=== PATIENT | male | born 1945 | race Caucasian/White ===

== ENCOUNTER 2021-01-03 01:28 | Inpatient (IN) | payer MEDICARE ==
[2021-01-03] MEDS ORDERED: Propofol 1,000 MG/100 ML VIAL IV ONE (01:48)
[2021-01-03 01:51] LABS: #Lymphocytes 1.7 thou/uL (1.20-3.40); #Monocytes 0.5 thou/uL (0.11-0.59); %Basophils 0.5 % (0.0-1.0); %Eosinophils 0.2 % (0.0-10.0); %Lymphocytes 20.6 % (21.0-51.0); %Monocytes 6.3 % (0.0-10.0); %Neutrophils 72.5 % (42.0-75.0); Hemoglobin 14.6 g/dL (14.0-18.0); Mean Corpuscular HGB CONC 30.6 g/dL (32.0-36.0); Mean Corpuscular Hemoglobin 28.8 pg (27.0-31.0); Mean Corpuscular Volume 94.3 fL (78.0-98.0); Platelet Count 323 thou/uL (130-400); RBC Distribution Width 13.7 % (11.5-14.5); Red Blood Cell (RBC) Count 5.08 mill/uL (4.70-6.10); White Blood Cell (WBC) Count 8.3 thou/uL (4.8-10.8)
[2021-01-03] MEDS ORDERED: Vecuronium 10 MG VIAL ONE (02:03)
[2021-01-03] MEDS ORDERED: Water For Inject, Bacteriostat 30 ML ONE (02:05)
[2021-01-03 02:11] LABS: ALT (SGPT) 56 U/L (8-55); AST (SGOT) 68 U/L (5-34); Alkaline Phosphatase 155 U/L (40-110); Anion Gap 22 mmol/L (10-20); BUN (Urea Nitrogen) 16 mg/dL (8.4-25.7); Bilirubin, Total 0.7 mg/dL (0.2-1.2); Calc. Creatinine Clearance 0 mL/min (70-130); Calcium 9.1 mg/dL (7.8-10.44); Carbon Dioxide 23 mmol/L (23-31); Chloride 96 mmol/L (98-107); Globulin 3.7 g/dL (2.4-3.5); Glucose 191 mg/dL (83-110); Potassium 6.1 mmol/L (3.5-5.1); Protein, Total 7.7 g/dL (5.8-8.1); Sodium 135 mmol/L (136-145)
[2021-01-03] MEDS ORDERED: Sodium Bicarb 50 MEQ/50 ML Abboject 8.4% SYRINGE ONE ×2 (02:21)
[2021-01-03 02:22] LABS: Bilirubin Negative (Negative); Blood, Urine Negative (Negative); Clarity Clear (Clear); Glucose, Urine (Dipstick) Normal (Negative); Ketone, Urine Negative (Negative); Leukocyte Negative Leu/uL (Negative); Nitrite Negative (Negative); Protein, Urine (Dipstick) 20 mg/dL (Neg-Trace); Specific Gravity, Urine 1.021 (1.002-1.036); Urobilinogen Normal mg/dL (Less than 2); pH, Urine 5.5 (5.0-9.0)
[2021-01-03] MEDS ORDERED: Dextrose 50% Abboject 50 ML SYRINGE ONE (02:22)
[2021-01-03] MEDS ORDERED: Calcium Chloride 1 GM/10 ML Abboject SYRINGE ONE (02:22)
[2021-01-03] MEDS ORDERED: Insulin Regular 300 UNITS/3 ML VIAL ONE ×2 (02:22→17:55)
[2021-01-03 02:34] LABS: Actual Bicarbonate (HCO3a) 26.8 mEq/L (22-28); Analyzer IN Cardio ER; Base Excess (BEa) -1.9 mEq/L (-2.0 to +3.0); Calcium, Ionized (arterial) 1.12 mmol/L (1.12-1.30); Hemoglobin (Hb) 14.1 g/dL (14.0-18.0); Potassium - ABG Lab 5.02 mmol/L (3.70-5.30)
[2021-01-03 03:00] LABS: SARS-CoV-2 NAA Rapid Test Not Detected (NotDetected)
[2021-01-03] MEDS ORDERED: Furosemide 40 MG/4 ML VIAL ONE (03:22)
[2021-01-03] MEDS ORDERED: Ketamine 50 MG/ML (10ML VIAL) ONE (03:32)
[2021-01-03] MEDS ORDERED: Norepinephrine 8 MG/0.9% NS 0 ML ONE (03:45)
[2021-01-03] MEDS ORDERED: Norepinephrine 4 MG/4 ML VIAL ONE (03:59)
[2021-01-03] MEDS ORDERED: Norepinephrine 8 MG/0.9% NS 250 ML ONE ×2 (03:59→11:31)
[2021-01-03] MEDS ORDERED: Vancomycin 1 GM/200 ML BAG ONE (04:32)
[2021-01-03] MEDS ORDERED: Cefepime 2 GM VIAL ONE ×3 (04:32→20:46)
[2021-01-03 05:22] LABS: Lactic Acid 7.9 mmol/L (0.5-2.2)
[2021-01-03 05:23] LABS: Anion Gap 18 mmol/L (10-20); BUN (Urea Nitrogen) 18 mg/dL (8.4-25.7); Calc. Creatinine Clearance 0 mL/min (70-130); Calcium 10.3 mg/dL (7.8-10.44); Carbon Dioxide 27 mmol/L (23-31); Chloride 95 mmol/L (98-107); Glucose 140 mg/dL (83-110); Sodium 135 mmol/L (136-145)
[2021-01-03 05:32] LABS: Acetaminophen Less than 6.0 mcg/mL (10.0-30.0); Alcohol Less than 10 mg/dL (Less than 10); Salicylate Less than 8.0 mg/dL (15.0-30.0)
[2021-01-03 06:30] LABS: Troponin I 0.109 ng/mL (< 0.028)
[2021-01-03 07:26] LABS: Amphetamine Not Detected (NotDetected); Barbiturates Screen Not Detected (NotDetected); Benzodiazepine Screen Not Detected (NotDetected); Cocaine Metabolite Screen Not Detected (NotDetected); Methadone Not Detected (NotDetected); Methamphetamine Not Detected (NotDetected); Opiate Screen Not Detected (NotDetected); Oxycodone Screen Not Detected (NotDetected); Phencyclidine (PCP) Not Detected (NotDetected); THC/Cannabinoid Screen Not Detected (NotDetected); Tricyclic Screen Not Detected (NotDetected)
[2021-01-03 08:00] LABS: Hemoglobin A1c 6.5 % (4.0-6.0)
[2021-01-03 08:04] LABS: INR-International Normal Ratio 1.3; PTT 29.2 sec (22.9-36.1); Prothrombin Time 16.6 sec (12.0-14.7)
[2021-01-03 08:07] LABS: D-Dimer Test 2.34 *mcg/mL (0.27-0.43)
[2021-01-03] MEDS: Fentanyl BOLUS 250 ML IVPB PRN ×4 (09:00→10:20)
[2021-01-03] MEDS: Cefepime 2 GM in Sodium Chloride 0.9% 100 ML IVPB SCH ×2 (09:05→20:53)
[2021-01-03] MEDS ORDERED: DISCONTINUE PREVIOUS NARCOTIC PAIN MEDICATIONS AND BENZODIAZEPINES FS SCH (09:15)
[2021-01-03] MEDS ORDERED: Dextrose 50% Abboject 50 ML SYRINGE IVP PRN (09:15)
[2021-01-03] MEDS ORDERED: Dextrose 5% in Water 1,000 ML IV PRN (09:15)
[2021-01-03] MEDS ORDERED: Sodium Chloride 0.9% (PF) 10 ML VIAL FS PRN (09:15)
[2021-01-03] MEDS ORDERED: Propofol BOLUS 1,000 MG/100 ML VIAL IV PRN (09:15)
[2021-01-03] MEDS ORDERED: Norepinephrine 8 MG in Dextrose 5% in Water 242 ML IVPB PRN (09:15)
[2021-01-03 09:16] LABS: pH, Arterial 7.25 (7.35-7.45)
[2021-01-03 09:17] LABS: CO2 Tension 63.2 mmHg (35.0-45.0); O2 Tension (PaO2), arterial 48.7 mmHg (> 70.0); Puncture Site LRA
[2021-01-03 09:25] LABS: Troponin I 0.739 ng/mL (< 0.028)
[2021-01-03] MEDS ORDERED: Enoxaparin Sodium 100 MG/ML SYRINGE ONE (10:03)
[2021-01-03] MEDS ORDERED: Pantoprazole 40 MG VIAL ONE (10:03)
[2021-01-03] MEDS ORDERED: Enoxaparin Sodium 60 MG/0.6 ML SYRINGE ONE (10:03)
[2021-01-03] MEDS: Dextrose 5 % And 0.9 % NaCl 1,000 ML IV SCH (10:14)
[2021-01-03] MEDS ORDERED: Enoxaparin Sodium 80 MG/0.8 ML SYRINGE SC SCH (10:15)
[2021-01-03] MEDS ORDERED: Pantoprazole 40 MG VIAL IVP SCH (10:15)
[2021-01-03] MEDS ORDERED: Iopamidol-370 76% 500 ML 1 ML ONE (11:36)
[2021-01-03] MEDS ORDERED: Acetaminophen 650 MG Suppository ONE (12:46)
[2021-01-03] MEDS: Fentanyl CADD 100 ML IV SCH (13:12)
[2021-01-03] MEDS ORDERED: Ibuprofen 100 MG/5 ML UDCUP ONE (16:00)
[2021-01-03 16:07] LABS: Actual Bicarbonate (HCO3a) 24.5 mEq/L (22-28); Analyzer IN Cardio ER; Base Excess (BEa) 3.8 mEq/L (-2.0 to +3.0); CO2 Tension 26.5 mmHg (35.0-45.0); Calcium, Ionized (arterial) 1.11 mmol/L (1.12-1.30); Carboxyhemoglobin (COHb) 0.4 gm% (0.0-3.0); Hemoglobin (Hb) 13.8 g/dL (14.0-18.0); Potassium - ABG Lab 4.88 mmol/L (3.70-5.30)
[2021-01-03 16:13] LABS: O2 Tension (PaO2), arterial 43.4 mmHg (> 70.0); pH, Arterial 7.58 (7.35-7.45)
[2021-01-03 16:14] LABS: ALV-art Gradient 636.475 mmHg (0-20); Puncture Site RRA
[2021-01-03] MEDS ORDERED: Ibuprofen 200 MG TAB PER TUBE SCH (16:45)
[2021-01-03] MEDS ORDERED: Ibuprofen 200 MG TAB PER TUBE PRN (16:50)
[2021-01-03] MEDS: Insulin Regular 300 UNITS/3 ML VIAL SC PRN (17:54)
[2021-01-03 19:15] LABS: Actual Bicarbonate (HCO3a) 24.9 mEq/L (22-28); Analyzer IN Cardio ER; Base Excess (BEa) 1.1 mEq/L (-2.0 to +3.0); CO2 Tension 36.5 mmHg (35.0-45.0); Calcium, Ionized (arterial) 1.12 mmol/L (1.12-1.30); Carboxyhemoglobin (COHb) 0.3 gm% (0.0-3.0); Hemoglobin (Hb) 13.1 g/dL (14.0-18.0); pH, Arterial 7.45 (7.35-7.45)
[2021-01-03] MEDS ORDERED: Sodium Chloride 0.9% 1,000 ML IV SCH (19:15)
[2021-01-03 19:18] LABS: O2 Tension (PaO2), arterial 54.7 mmHg (> 70.0)
[2021-01-03 19:20] LABS: Puncture Site LRA
[2021-01-03 19:21] LABS: ALV-art Gradient 612.675 mmHg (0-20)
[2021-01-03] MEDS ORDERED: Enoxaparin Sodium 80 MG/0.8 ML SYRINGE ONE (20:51)
[2021-01-03] MEDS: Enoxaparin Sodium 80 MG/0.8 ML SYRINGE SC SCH (20:54)
[2021-01-03] MEDS ORDERED: VANCOMYCIN 2 GRAM/400 ML BAG 2 GM in Premix Bag 1 BAG IVPB SCH (21:15)
[2021-01-04 04:36] LABS: #Basophils 0.1 thou/uL (0.0-0.2); #Monocytes 1.1 thou/uL (0.11-0.59); #Neutrophils 9.3 thou/uL (1.40-6.50); %Basophils 0.5 % (0.0-1.0); %Eosinophils 0.4 % (0.0-10.0); %Lymphocytes 15.8 % (21.0-51.0); %Monocytes 8.5 % (0.0-10.0); %Neutrophils 74.9 % (42.0-75.0); Mean Corpuscular HGB CONC 32.3 g/dL (32.0-36.0); Mean Corpuscular Hemoglobin 29.6 pg (27.0-31.0); Mean Corpuscular Volume 91.5 fL (78.0-98.0); Mean Platelet Volume 7.5 fL (7.4-10.4); Platelet Count 271 thou/uL (130-400); RBC Distribution Width 13.9 % (11.5-14.5); White Blood Cell (WBC) Count 12.4 thou/uL (4.8-10.8)
[2021-01-04 05:29] LABS: ALT (SGPT) 528 U/L (8-55); AST (SGOT) 427 U/L (5-34); Albumin 3.2 g/dL (3.4-4.8); Alkaline Phosphatase 134 U/L (40-110); Anion Gap 16 mmol/L (10-20); BUN (Urea Nitrogen) 35 mg/dL (8.4-25.7); Calc. Creatinine Clearance 0 mL/min (70-130); Calcium 8.7 mg/dL (7.8-10.44); Carbon Dioxide 27 mmol/L (23-31); Chloride 96 mmol/L (98-107); Globulin 3.2 g/dL (2.4-3.5); Glucose 130 mg/dL (83-110); Phosphorus 4.7 mg/dL (2.3-4.7); Potassium 5.5 mmol/L (3.5-5.1); Protein, Total 6.4 g/dL (5.8-8.1); Sodium 133 mmol/L (136-145)
[2021-01-04] MEDS: Fentanyl BOLUS 250 ML IVPB PRN ×2 (06:17→15:34)
[2021-01-04] MEDS: Dextrose 5 % And 0.9 % NaCl 1,000 ML IV SCH ×3 (06:21→20:53)
[2021-01-04] MEDS: Lorazepam 2 MG/ML VIAL SLOW IVP PRN (06:28)
[2021-01-04] MEDS ORDERED: Fentanyl 100 MCG/2 ML VIAL ONE (06:29)
[2021-01-04] MEDS ORDERED: Lorazepam 2 MG/ML VIAL ONE ×2 (06:29→09:37)
[2021-01-04] MEDS ORDERED: Furosemide 40 MG/4 ML VIAL ONE (07:17)
[2021-01-04 07:22] LABS: Actual Bicarbonate (HCO3a) 27.8 mEq/L (22-28); Analyzer IN Cardio ER; Base Excess (BEa) -0.1 mEq/L (-2.0 to +3.0); Calcium, Ionized (arterial) 1.14 mmol/L (1.12-1.30); Hemoglobin (Hb) 13.1 g/dL (14.0-18.0); Potassium - ABG Lab 4.95 mmol/L (3.70-5.30); pH, Arterial 7.28 (7.35-7.45)
[2021-01-04 07:28] LABS: CO2 Tension 60.7 mmHg (35.0-45.0); O2 Tension (PaO2), arterial 53.1 mmHg (> 70.0)
[2021-01-04 07:29] LABS: ALV-art Gradient 584.025 mmHg (0-20); Puncture Site RRA
[2021-01-04] MEDS ORDERED: Furosemide 40 MG/4 ML VIAL SLOW IVP SCH (07:45)
[2021-01-04] MEDS ORDERED: Acetaminophen 650 MG Suppository ONE (09:17)
[2021-01-04] MEDS ORDERED: Cefepime 2 GM VIAL ONE (09:17)
[2021-01-04] MEDS ORDERED: Enoxaparin Sodium 60 MG/0.6 ML SYRINGE ONE (09:17)
[2021-01-04] MEDS ORDERED: Enoxaparin Sodium 100 MG/ML SYRINGE ONE (09:17)
[2021-01-04] MEDS ORDERED: Pantoprazole 40 MG VIAL ONE (09:17)
[2021-01-04 09:30] LABS: Amphetamine Not Detected (NotDetected); Barbiturates Screen Not Detected (NotDetected); Benzodiazepine Screen Not Detected (NotDetected); Cocaine Metabolite Screen Not Detected (NotDetected); Methadone Not Detected (NotDetected); Methamphetamine Detected (NotDetected); Opiate Screen Not Detected (NotDetected); Oxycodone Screen Not Detected (NotDetected); Phencyclidine (PCP) Not Detected (NotDetected); THC/Cannabinoid Screen Not Detected (NotDetected); Tricyclic Screen Not Detected (NotDetected)
[2021-01-04] MEDS: Cefepime 2 GM in Sodium Chloride 0.9% 100 ML IVPB SCH ×2 (09:35→21:23)
[2021-01-04] MEDS: Enoxaparin Sodium 80 MG/0.8 ML SYRINGE SC SCH ×2 (09:35→20:41)
[2021-01-04] MEDS: Pantoprazole 40 MG VIAL IVP SCH (09:35)
[2021-01-04] MEDS: Acetaminophen 650 MG Suppository PR PRN (09:35)
[2021-01-04 10:03] LABS: Bilirubin Negative (Negative); Blood, Urine Large (Negative); Glucose, Urine (Dipstick) Negative (Negative); Ketone, Urine Trace mg/dL (Negative); Leukocyte Negative (Negative); Nitrite Negative (Negative); Protein, Urine (Dipstick) 30 mg/dL (Neg-Trace); Specific Gravity, Urine 1.025 (1.005-1.030); Urobilinogen 0.2 mg/dL (Less than 2)
[2021-01-04 10:05] LABS: Clarity Clear (Clear)
[2021-01-04 10:16] LABS: Bacteria/HPF 1+ HPF (None Seen); Squamous Epithelial 0-3 HPF (0-3); Yeast-Budding None Seen HPF (None Seen)
[2021-01-04 10:17] LABS: Trichomonas/HPF None Seen HPF (None Seen)
[2021-01-04 10:18] LABS: Urine Culture Reflex Yes Yes
[2021-01-04] MEDS ORDERED: Propofol 1,000 MG/100 ML VIAL IV ONE (14:08)
[2021-01-04] MEDS ORDERED: LOKELMA 10 GM PACKET PO SCH (16:00)
[2021-01-04] MEDS: VANCOMYCIN 2 GRAM/400 ML BAG 2 GM in Premix Bag 1 BAG IVPB SCH (16:29)
[2021-01-04 19:15] LABS: Anion Gap 18 mmol/L (10-20); BUN (Urea Nitrogen) 43 mg/dL (8.4-25.7); Calc. Creatinine Clearance 33 mL/min (70-130); Calcium 8.3 mg/dL (7.8-10.44); Carbon Dioxide 23 mmol/L (23-31); Chloride 94 mmol/L (98-107); Glucose 134 mg/dL (83-110); Potassium 5.2 mmol/L (3.5-5.1); Sodium 130 mmol/L (136-145)
[2021-01-05] MEDS: Fentanyl CADD 100 ML IV SCH ×2 (00:05→10:45)
[2021-01-05] MEDS ORDERED: Norepinephrine 8 MG/0.9% NS 250 ML IVPB SCH (00:30)
[2021-01-05] MEDS: Propofol 1,000 MG/100 ML VIAL IV PRN ×2 (03:45→18:14)
[2021-01-05 04:51] LABS: #Lymphocytes 1.8 thou/uL (1.20-3.40); #Neutrophils 10.9 thou/uL (1.40-6.50); %Basophils 0.3 % (0.0-1.0); %Eosinophils 0.3 % (0.0-10.0); %Lymphocytes 13.2 % (21.0-51.0); %Monocytes 7.4 % (0.0-10.0); %Neutrophils 78.9 % (42.0-75.0); Mean Corpuscular HGB CONC 33.4 g/dL (32.0-36.0); Mean Corpuscular Hemoglobin 30.7 pg (27.0-31.0); Mean Corpuscular Volume 91.9 fL (78.0-98.0); Platelet Count 265 thou/uL (130-400); RBC Distribution Width 13.7 % (11.5-14.5); Red Blood Cell (RBC) Count 3.93 mill/uL (4.70-6.10); White Blood Cell (WBC) Count 13.9 thou/uL (4.8-10.8)
[2021-01-05 05:05] LABS: ALT (SGPT) 499 U/L (8-55); AST (SGOT) 327 U/L (5-34); Alkaline Phosphatase 122 U/L (40-110); Anion Gap 17 mmol/L (10-20); BUN (Urea Nitrogen) 47 mg/dL (8.4-25.7); Bilirubin, Total 0.9 mg/dL (0.2-1.2); Calc. Creatinine Clearance 35 mL/min (70-130); Calcium 8.3 mg/dL (7.8-10.44); Carbon Dioxide 26 mmol/L (23-31); Chloride 93 mmol/L (98-107); Globulin 2.9 g/dL (2.4-3.5); Glucose 124 mg/dL (83-110); Potassium 5.1 mmol/L (3.5-5.1); Protein, Total 5.9 g/dL (5.8-8.1); Sodium 131 mmol/L (136-145)
[2021-01-05 05:07] LABS: Phosphorus 5.6 mg/dL (2.3-4.7)
[2021-01-05] MEDS ORDERED: Furosemide 40 MG/4 ML VIAL SLOW IVP SCH (07:15)
[2021-01-05 08:46] LABS: Actual Bicarbonate (HCO3a) 25.7 mEq/L (22-28); Base Excess (BEa) -1.3 mEq/L (-2.0 to +3.0); CO2 Tension 52.3 mmHg (35.0-45.0); Calcium, Ionized (arterial) 1.05 mmol/L (1.12-1.30); O2 Tension (PaO2), arterial 81.9 mmHg (> 70.0); Potassium - ABG Lab 4.89 mmol/L (3.70-5.30); pH, Arterial 7.31 (7.35-7.45)
[2021-01-05] MEDS: Pantoprazole 40 MG VIAL IVP SCH (08:47)
[2021-01-05] MEDS: Cefepime 2 GM in Sodium Chloride 0.9% 100 ML IVPB SCH (08:49)
[2021-01-05] MEDS: Enoxaparin Sodium 80 MG/0.8 ML SYRINGE SC SCH (08:50)
[2021-01-05 09:06] LABS: Puncture Site LBA
[2021-01-05 09:07] LABS: ALV-art Gradient 565.725 mmHg (0-20)
[2021-01-05] MEDS ORDERED: Fentanyl CADD 100 ML ONE ×3 (10:34→23:59)
[2021-01-05] MEDS ORDERED: Heparin 10,000 UNITS/ 10 ML VIAL SLOW IVP SCH (11:15)
[2021-01-05 11:50] LABS: Hemoglobin 11.7 g/dL (14.0-18.0); Platelet Count 260 thou/uL (130-400)
[2021-01-05] MEDS: Heparin 25,000 units/D5W 500 ML IVPB SCH ×2 (11:55→23:13)
[2021-01-05] MEDS: Lorazepam 2 MG/ML VIAL SLOW IVP PRN ×3 (14:19→21:32)
[2021-01-05] MEDS: Vecuronium 10 MG VIAL IVP PRN ×3 (14:20→21:32)
[2021-01-05 14:52] LABS: Anion Gap 18 mmol/L (10-20); BUN (Urea Nitrogen) 51 mg/dL (8.4-25.7); Calc. Creatinine Clearance 31 mL/min (70-130); Calcium 7.9 mg/dL (7.8-10.44); Carbon Dioxide 23 mmol/L (23-31); Chloride 94 mmol/L (98-107); Glucose 139 mg/dL (83-110); Sodium 130 mmol/L (136-145)
[2021-01-05] MEDS ORDERED: Furosemide 100 MG/10 ML VIAL SLOW IVP SCH (15:00)
[2021-01-05] MEDS: VANCOMYCIN 2 GRAM/400 ML BAG 2 GM in Premix Bag 1 BAG IVPB SCH (17:08)
[2021-01-05] MEDS: Sodium Chloride 0.9% 1,000 ML IV SCH (20:24)
[2021-01-06] MEDS: Fentanyl CADD 100 ML IV SCH ×2 (00:29→14:23)
[2021-01-06 00:36] LABS: PTT 133.8 sec (22.9-36.1)
[2021-01-06] MEDS: Propofol 1,000 MG/100 ML VIAL IV PRN ×2 (03:10→12:28)
[2021-01-06 03:53] LABS: #Eosinphils 0.1 thou/uL (0.0-0.7); #Lymphocytes 1.1 thou/uL (1.20-3.40); #Monocytes 1.1 thou/uL (0.11-0.59); #Neutrophils 10.3 thou/uL (1.40-6.50); %Basophils 0.1 % (0.0-1.0); %Eosinophils 0.6 % (0.0-10.0); %Monocytes 8.8 % (0.0-10.0); %Neutrophils 81.5 % (42.0-75.0); Mean Corpuscular HGB CONC 32.3 g/dL (32.0-36.0); Mean Corpuscular Hemoglobin 29.3 pg (27.0-31.0); Mean Corpuscular Volume 90.6 fL (78.0-98.0); Mean Platelet Volume 7.5 fL (7.4-10.4); Platelet Count 239 thou/uL (130-400); RBC Distribution Width 14.1 % (11.5-14.5); Red Blood Cell (RBC) Count 4.12 mill/uL (4.70-6.10); White Blood Cell (WBC) Count 12.7 thou/uL (4.8-10.8)
[2021-01-06 04:10] LABS: Chloride 94 mmol/L (98-107); Potassium 4.9 mmol/L (3.5-5.1); Sodium 132 mmol/L (136-145)
[2021-01-06 04:21] LABS: ALT (SGPT) 462 U/L (8-55); AST (SGOT) 250 U/L (5-34); Albumin 2.9 g/dL (3.4-4.8); Alkaline Phosphatase 125 U/L (40-110); BUN (Urea Nitrogen) 56 mg/dL (8.4-25.7); Bilirubin, Total 0.7 mg/dL (0.2-1.2); Calc. Creatinine Clearance 28 mL/min (70-130); Calcium 7.7 mg/dL (7.8-10.44); Carbon Dioxide 23 mmol/L (23-31); Globulin 2.9 g/dL (2.4-3.5); Glucose 106 mg/dL (83-110); Magnesium 2.1 mg/dL (1.6-2.6); Protein, Total 5.8 g/dL (5.8-8.1)
[2021-01-06 04:32] LABS: Anion Gap 20 mmol/L (10-20)
[2021-01-06] MEDS: Lorazepam 2 MG/ML VIAL SLOW IVP PRN ×2 (04:49→16:32)
[2021-01-06 08:04] LABS: Phosphorus 7.2 mg/dL (2.3-4.7)
[2021-01-06 08:14] LABS: Base Excess (BEa) -2.7 mEq/L (-2.0 to +3.0); CO2 Tension 50.1 mmHg (35.0-45.0); Calcium, Ionized (arterial) 1.01 mmol/L (1.12-1.30); Carboxyhemoglobin (COHb) 0.4 gm% (0.0-3.0); Potassium - ABG Lab 4.77 mmol/L (3.70-5.30)
[2021-01-06 08:18] LABS: Puncture Site RRA
[2021-01-06 08:19] LABS: ALV-art Gradient 200.425 mmHg (0-20)
[2021-01-06] MEDS: Cefepime 2 GM in Sodium Chloride 0.9% 100 ML IVPB SCH (09:36)
[2021-01-06] MEDS: Pantoprazole 40 MG VIAL IVP SCH (09:36)
[2021-01-06] MEDS ORDERED: Fentanyl CADD 100 ML ONE ×2 (14:11→14:13)
[2021-01-06] MEDS: Furosemide 100 MG/10 ML VIAL SLOW IVP SCH ×2 (14:23→21:01)
[2021-01-06] MEDS: VANCOMYCIN 2 GRAM/400 ML BAG 2 GM in Premix Bag 1 BAG IVPB SCH (16:00)
[2021-01-06] MEDS: Heparin 25,000 units/D5W 500 ML IVPB SCH (16:01)
[2021-01-06 16:14] LABS: Vancomycin, Trough 48.6 ug/mL
[2021-01-06] MEDS: Vecuronium 10 MG VIAL IVP PRN (16:32)
[2021-01-06] MEDS: Sodium Chloride 0.9% 1,000 ML IV SCH (21:01)
[2021-01-07] MEDS: Propofol 1,000 MG/100 ML VIAL IV PRN ×5 (02:00→23:30)
[2021-01-07 05:05] LABS: #Eosinphils 0.1 thou/uL (0.0-0.7); #Monocytes 0.9 thou/uL (0.11-0.59); #Neutrophils 8.4 thou/uL (1.40-6.50); %Eosinophils 0.9 % (0.0-10.0); %Lymphocytes 9.1 % (21.0-51.0); %Monocytes 9.1 % (0.0-10.0); %Neutrophils 80.9 % (42.0-75.0); Hemoglobin 11.1 g/dL (14.0-18.0); Mean Corpuscular HGB CONC 31.6 g/dL (32.0-36.0); Mean Corpuscular Hemoglobin 28.4 pg (27.0-31.0); Mean Corpuscular Volume 89.8 fL (78.0-98.0); Mean Platelet Volume 8.1 fL (7.4-10.4); Platelet Count 244 thou/uL (130-400); RBC Distribution Width 13.9 % (11.5-14.5); Red Blood Cell (RBC) Count 3.92 mill/uL (4.70-6.10); White Blood Cell (WBC) Count 10.4 thou/uL (4.8-10.8)
[2021-01-07] MEDS: Furosemide 100 MG/10 ML VIAL SLOW IVP SCH (05:05)
[2021-01-07] MEDS: Insulin Regular 300 UNITS/3 ML VIAL SC PRN (05:07)
[2021-01-07 05:22] LABS: ALT (SGPT) 380 U/L (8-55); AST (SGOT) 170 U/L (5-34); Albumin 2.8 g/dL (3.4-4.8); Alkaline Phosphatase 160 U/L (40-110); BUN (Urea Nitrogen) 68 mg/dL (8.4-25.7); Bilirubin, Total 0.6 mg/dL (0.2-1.2); Calc. Creatinine Clearance 23 mL/min (70-130); Calcium 7.1 mg/dL (7.8-10.44); Carbon Dioxide 20 mmol/L (23-31); Chloride 91 mmol/L (98-107); Globulin 2.9 g/dL (2.4-3.5); Glucose 162 mg/dL (83-110); Magnesium 2.1 mg/dL (1.6-2.6); Phosphorus 7.6 mg/dL (2.3-4.7); Potassium 4.7 mmol/L (3.5-5.1); Protein, Total 5.7 g/dL (5.8-8.1); Sodium 129 mmol/L (136-145)
[2021-01-07 05:54] LABS: Anion Gap 23 mmol/L (10-20)
[2021-01-07 07:02] LABS: Actual Bicarbonate (HCO3a) 21.1 mEq/L (22-28); Base Excess (BEa) -4.9 mEq/L (-2.0 to +3.0); CO2 Tension 42.6 mmHg (35.0-45.0); Calcium, Ionized (arterial) 0.95 mmol/L (1.12-1.30); Carboxyhemoglobin (COHb) 0.2 gm% (0.0-3.0); Hemoglobin (Hb) 11.7 g/dL (14.0-18.0); O2 Tension (PaO2), arterial 89.6 mmHg (> 70.0); Potassium - ABG Lab 4.28 mmol/L (3.70-5.30); Puncture Site RRA; pH, Arterial 7.31 (7.35-7.45)
[2021-01-07] MEDS: Cefepime 2 GM in Sodium Chloride 0.9% 100 ML IVPB SCH (08:52)
[2021-01-07] MEDS: Pantoprazole 40 MG VIAL IVP SCH (08:52)
[2021-01-07] MEDS ORDERED: Heparin 10,000 UNITS/ 10 ML VIAL ONE (10:33)
[2021-01-07 17:48] LABS: HBSAB Concentration Less than 8.00 mIU/mL; HBSAg Index 0.14 S/CO (0-0.99); Hep B Core Total Ab Non-Reactive (NonReactive); Hep B Core Total Index 0.05 S/CO (0-0.79); Hep B Surf AB Non-Reactive (NonReactive); Hep B Surf Ag Non-Reactive S/CO (NonReactive); Hep C IgG Ab Non-Reactive (NonReactive); Hep C Index 0.24 S/CO (0-0.79)
[2021-01-07] MEDS ORDERED: Vancomycin HCl 1 GM in Premix Bag 1 BAG IVPB SCH (21:00)
[2021-01-07] MEDS: Lorazepam 2 MG/ML VIAL SLOW IVP PRN (21:13)
[2021-01-07] MEDS: Sodium Chloride 0.9% 1,000 ML IV SCH (21:17)
[2021-01-08] MEDS: Propofol 1,000 MG/100 ML VIAL IV PRN ×3 (03:51→22:25)
[2021-01-08 05:05] LABS: #Basophils 0.1 thou/uL (0.0-0.2); #Eosinphils 0.1 thou/uL (0.0-0.7); #Lymphocytes 1.2 thou/uL (1.20-3.40); #Monocytes 1.2 thou/uL (0.11-0.59); #Neutrophils 6.8 thou/uL (1.40-6.50); %Basophils 0.6 % (0.0-1.0); %Eosinophils 1.4 % (0.0-10.0); %Lymphocytes 13.1 % (21.0-51.0); %Monocytes 12.5 % (0.0-10.0); %Neutrophils 72.4 % (42.0-75.0); Hemoglobin 10.5 g/dL (14.0-18.0); Mean Corpuscular Hemoglobin 28.1 pg (27.0-31.0); Mean Corpuscular Volume 87.9 fL (78.0-98.0); Mean Platelet Volume 7.6 fL (7.4-10.4); Platelet Count 213 thou/uL (130-400); Red Blood Cell (RBC) Count 3.73 mill/uL (4.70-6.10); White Blood Cell (WBC) Count 9.4 thou/uL (4.8-10.8)
[2021-01-08 05:35] LABS: ALT (SGPT) 282 U/L (8-55); AST (SGOT) 142 U/L (5-34); Albumin 2.8 g/dL (3.4-4.8); Alkaline Phosphatase 169 U/L (40-110); BUN (Urea Nitrogen) 71 mg/dL (8.4-25.7); Bilirubin, Total 0.6 mg/dL (0.2-1.2); Calc. Creatinine Clearance 24 mL/min (70-130); Calcium 7.1 mg/dL (7.8-10.44); Carbon Dioxide 22 mmol/L (23-31); Chloride 94 mmol/L (98-107); Globulin 2.8 g/dL (2.4-3.5); Glucose 110 mg/dL (83-110); Magnesium 2.2 mg/dL (1.6-2.6); Phosphorus 5.8 mg/dL (2.3-4.7); Potassium 4.4 mmol/L (3.5-5.1); Protein, Total 5.6 g/dL (5.8-8.1); Sodium 133 mmol/L (136-145)
[2021-01-08 05:37] LABS: Anion Gap 21 mmol/L (10-20)
[2021-01-08 07:33] LABS: Actual Bicarbonate (HCO3a) 21.7 mEq/L (22-28); Base Excess (BEa) -3.1 mEq/L (-2.0 to +3.0); CO2 Tension 37.9 mmHg (35.0-45.0); Calcium, Ionized (arterial) 0.96 mmol/L (1.12-1.30); Carboxyhemoglobin (COHb) 0.4 gm% (0.0-3.0); Hemoglobin (Hb) 12.1 g/dL (14.0-18.0); O2 Tension (PaO2), arterial 60.4 mmHg (> 70.0); Potassium - ABG Lab 4.14 mmol/L (3.70-5.30); pH, Arterial 7.38 (7.35-7.45)
[2021-01-08 07:51] LABS: Puncture Site RRA
[2021-01-08 07:52] LABS: ALV-art Gradient 177.425 mmHg (0-20)
[2021-01-08] MEDS: Cefepime 2 GM in Sodium Chloride 0.9% 100 ML IVPB SCH (08:12)
[2021-01-08] MEDS: Lorazepam 2 MG/ML VIAL SLOW IVP PRN ×3 (08:13→22:38)
[2021-01-08] MEDS: Heparin 5,000 UNITS/ML VIAL SC SCH ×3 (08:13→20:06)
[2021-01-08] MEDS: Pantoprazole 40 MG VIAL IVP SCH (08:38)
[2021-01-08] MEDS ORDERED: Heparin 5,000 UNITS/ML VIAL SC SCH (09:00)
[2021-01-08] MEDS ORDERED: Heparin 10,000 UNITS/ 10 ML VIAL ONE (14:45)
[2021-01-08] MEDS: Sodium Chloride 0.9% 1,000 ML IV SCH (20:11)
[2021-01-09 00:12] LABS: Vancomycin, Random 34.8 ug/mL (See Comment)
[2021-01-09] MEDS: Lorazepam 2 MG/ML VIAL SLOW IVP PRN ×4 (07:43→16:32)
[2021-01-09] MEDS: Propofol 1,000 MG/100 ML VIAL IV PRN ×6 (07:43→23:44)
[2021-01-09] MEDS: Morphine 2 MG/ML VIAL SLOW IVP PRN ×2 (07:43→16:32)
[2021-01-09] MEDS: Cefepime 2 GM in Sodium Chloride 0.9% 100 ML IVPB SCH (07:43)
[2021-01-09 07:44] LABS: Actual Bicarbonate (HCO3a) 23.3 mEq/L (22-28); Base Excess (BEa) -1.1 mEq/L (-2.0 to +3.0); CO2 Tension 38.1 mmHg (35.0-45.0); Calcium, Ionized (arterial) 1.02 mmol/L (1.12-1.30); Carboxyhemoglobin (COHb) 0.3 gm% (0.0-3.0); Hemoglobin (Hb) 11.1 g/dL (14.0-18.0); Potassium - ABG Lab 4.32 mmol/L (3.70-5.30); pH, Arterial 7.41 (7.35-7.45)
[2021-01-09] MEDS: Heparin 5,000 UNITS/ML VIAL SC SCH ×3 (07:44→20:59)
[2021-01-09 07:45] LABS: O2 Tension (PaO2), arterial 52.6 mmHg (> 70.0)
[2021-01-09] MEDS: Pantoprazole 40 MG VIAL IVP SCH (07:45)
[2021-01-09 07:46] LABS: ALV-art Gradient 184.975 mmHg (0-20); Puncture Site RRA
[2021-01-09 11:34] LABS: ALT (SGPT) 234 U/L (8-55); AST (SGOT) 130 U/L (5-34); Albumin 2.7 g/dL (3.4-4.8); Alkaline Phosphatase 193 U/L (40-110); Anion Gap 19 mmol/L (10-20); BUN (Urea Nitrogen) 63 mg/dL (8.4-25.7); Bilirubin, Total 0.6 mg/dL (0.2-1.2); Calc. Creatinine Clearance 28 mL/min (70-130); Calcium 7.4 mg/dL (7.8-10.44); Carbon Dioxide 22 mmol/L (23-31); Chloride 94 mmol/L (98-107); Globulin 2.9 g/dL (2.4-3.5); Glucose 95 mg/dL (83-110); Magnesium 2.3 mg/dL (1.6-2.6); Phosphorus 5.5 mg/dL (2.3-4.7); Potassium 4.1 mmol/L (3.5-5.1); Protein, Total 5.6 g/dL (5.8-8.1); Sodium 131 mmol/L (136-145)
[2021-01-09] MEDS: Vecuronium 10 MG VIAL IVP PRN ×2 (12:50→16:31)
[2021-01-09 13:31] LABS: %Lymphocytes 10.7 % (21.0-51.0); %Neutrophils 73.3 % (42.0-75.0); Hemoglobin 9.8 g/dL (14.0-18.0); Mean Corpuscular HGB CONC 33.1 g/dL (32.0-36.0); Mean Corpuscular Volume 87.6 fL (78.0-98.0); Mean Platelet Volume 7.5 fL (7.4-10.4); Platelet Count 215 thou/uL (130-400); Red Blood Cell (RBC) Count 3.39 mill/uL (4.70-6.10); White Blood Cell (WBC) Count 8.8 thou/uL (4.8-10.8)
[2021-01-09 13:32] LABS: #Eosinphils 0.2 thou/uL (0.0-0.7); #Lymphocytes 0.9 thou/uL (1.20-3.40); #Monocytes 1.2 thou/uL (0.11-0.59); #Neutrophils 6.5 thou/uL (1.40-6.50); %Basophils 0.1 % (0.0-1.0); %Eosinophils 2.2 % (0.0-10.0); %Monocytes 13.7 % (0.0-10.0)
[2021-01-09] MEDS ORDERED: Heparin 10,000 UNITS/ 10 ML VIAL ONE (14:49)
[2021-01-09] MEDS: Sodium Chloride 0.9% 1,000 ML IV SCH (23:40)
[2021-01-10] MEDS: Propofol 1,000 MG/100 ML VIAL IV PRN ×7 (03:17→23:35)
[2021-01-10 04:45] LABS: ALT (SGPT) 202 U/L (8-55); AST (SGOT) 95 U/L (5-34); Albumin 2.9 g/dL (3.4-4.8); Alkaline Phosphatase 223 U/L (40-110); Anion Gap 18 mmol/L (10-20); BUN (Urea Nitrogen) 51 mg/dL (8.4-25.7); Bilirubin, Total 0.6 mg/dL (0.2-1.2); Calc. Creatinine Clearance 34 mL/min (70-130); Calcium 8.2 mg/dL (7.8-10.44); Carbon Dioxide 25 mmol/L (23-31); Chloride 95 mmol/L (98-107); Globulin 3.2 g/dL (2.4-3.5); Glucose 104 mg/dL (83-110); Magnesium 2.3 mg/dL (1.6-2.6); Phosphorus 5.2 mg/dL (2.3-4.7); Potassium 4.4 mmol/L (3.5-5.1); Protein, Total 6.1 g/dL (5.8-8.1); Sodium 134 mmol/L (136-145)
[2021-01-10 05:33] LABS: Band 3 % (5-11); Eosinophils 2 % (0-10); Lymphocytes 11 % (21-51); MDiff Complete? YES; Mean Corpuscular HGB CONC 33.5 g/dL (32.0-36.0); Mean Corpuscular Hemoglobin 29.4 pg (27.0-31.0); Mean Corpuscular Volume 87.8 fL (78.0-98.0); Monocytes 10 % (0-10); Neutrophil 73 % (42-75); Nucleated RBC 2 % (0); Platelet Count 222 thou/uL (130-400); Platelet Morphology Comment Appears Adequate; RBC Distribution Width 14.1 % (11.5-14.5); RBC Morphology Normal; Reactive Lymphocytes 1 % (0-10); Red Blood Cell (RBC) Count 3.73 mill/uL (4.70-6.10); White Blood Cell (WBC) Count 9.7 thou/uL (4.8-10.8)
[2021-01-10 07:50] LABS: Actual Bicarbonate (HCO3a) 25.4 mEq/L (22-28); Base Excess (BEa) 0.6 mEq/L (-2.0 to +3.0); CO2 Tension 41.5 mmHg (35.0-45.0); Calcium, Ionized (arterial) 1.04 mmol/L (1.12-1.30); Carboxyhemoglobin (COHb) 0.7 gm% (0.0-3.0); Hemoglobin (Hb) 13.1 g/dL (14.0-18.0); O2 Tension (PaO2), arterial 68.2 mmHg (> 70.0); Potassium - ABG Lab 4.23 mmol/L (3.70-5.30); pH, Arterial 7.41 (7.35-7.45)
[2021-01-10 08:17] LABS: Puncture Site RRA
[2021-01-10 08:18] LABS: ALV-art Gradient 307.725 mmHg (0-20)
[2021-01-10] MEDS: Cefepime 2 GM in Sodium Chloride 0.9% 100 ML IVPB SCH (08:28)
[2021-01-10] MEDS: Morphine 2 MG/ML VIAL SLOW IVP PRN (08:29)
[2021-01-10] MEDS: Lorazepam 2 MG/ML VIAL SLOW IVP PRN ×2 (08:29→22:33)
[2021-01-10] MEDS: Vecuronium 10 MG VIAL IVP PRN (08:29)
[2021-01-10] MEDS: Heparin 5,000 UNITS/ML VIAL SC SCH ×3 (08:30→20:16)
[2021-01-10] MEDS: Pantoprazole 40 MG VIAL IVP SCH (08:30)
[2021-01-10 18:15] LABS: SARS-CoV-2 PCR by NAA Not Detected (NotDetected)
[2021-01-10] MEDS: Sodium Chloride 0.9% 1,000 ML IV SCH (20:17)
[2021-01-10 21:33] LABS: Vancomycin, Random 26.2 ug/mL (See Comment)
[2021-01-11] MEDS: Propofol 1,000 MG/100 ML VIAL IV PRN ×7 (02:21→22:13)
[2021-01-11 04:22] LABS: Band 1 % (5-11); Hemoglobin 9.8 g/dL (14.0-18.0); Hypochromia SLIGHT = 6-15 cells (100X) (0-5/hpf); Lymphocytes 23 % (21-51); MDiff Complete? YES; Mean Corpuscular HGB CONC 32.1 g/dL (32.0-36.0); Mean Corpuscular Hemoglobin 27.8 pg (27.0-31.0); Mean Corpuscular Volume 86.8 fL (78.0-98.0); Mean Platelet Volume 7.8 fL (7.4-10.4); Monocytes 10 % (0-10); Neutrophil 66 % (42-75); Nucleated RBC 1 % (0); Platelet Count 249 thou/uL (130-400); Platelet Morphology Comment Appears Adequate; RBC Distribution Width 14.2 % (11.5-14.5); Red Blood Cell (RBC) Count 3.54 mill/uL (4.70-6.10); White Blood Cell (WBC) Count 8.4 thou/uL (4.8-10.8)
[2021-01-11 04:36] LABS: ALT (SGPT) 144 U/L (8-55); AST (SGOT) 65 U/L (5-34); Albumin 2.8 g/dL (3.4-4.8); Alkaline Phosphatase 204 U/L (40-110); Anion Gap 18 mmol/L (10-20); BUN (Urea Nitrogen) 72 mg/dL (8.4-25.7); Bilirubin, Total 0.5 mg/dL (0.2-1.2); Calc. Creatinine Clearance 29 mL/min (70-130); Calcium 7.8 mg/dL (7.8-10.44); Carbon Dioxide 24 mmol/L (23-31); Chloride 94 mmol/L (98-107); Globulin 2.9 g/dL (2.4-3.5); Glucose 93 mg/dL (83-110); Magnesium 2.4 mg/dL (1.6-2.6); Phosphorus 6.8 mg/dL (2.3-4.7); Potassium 4.3 mmol/L (3.5-5.1); Protein, Total 5.7 g/dL (5.8-8.1); Sodium 132 mmol/L (136-145)
[2021-01-11 07:26] LABS: Actual Bicarbonate (HCO3a) 24.7 mEq/L (22-28); Base Excess (BEa) -0.3 mEq/L (-2.0 to +3.0); Calcium, Ionized (arterial) 1.05 mmol/L (1.12-1.30); Carboxyhemoglobin (COHb) 0.4 gm% (0.0-3.0); Hemoglobin (Hb) 10.7 g/dL (14.0-18.0); Potassium - ABG Lab 4.26 mmol/L (3.70-5.30); pH, Arterial 7.39 (7.35-7.45)
[2021-01-11] MEDS: Heparin 5,000 UNITS/ML VIAL SC SCH ×3 (09:33→22:02)
[2021-01-11] MEDS: Cefepime 2 GM in Sodium Chloride 0.9% 100 ML IVPB SCH (09:33)
[2021-01-11] MEDS: Pantoprazole 40 MG VIAL IVP SCH (09:34)
[2021-01-11] MEDS ORDERED: Heparin 10,000 UNITS/ 10 ML VIAL ONE (15:08)
[2021-01-11] MEDS: Sodium Chloride 0.9% 1,000 ML IV SCH (17:17)
[2021-01-11] MEDS ORDERED: Vancomycin HCl 750 MG in Sodium Chloride 0.9% 250 ML 250 ML IVPB SCH (22:00)
[2021-01-11] MEDS ORDERED: Vancomycin 1.5 GRAM/300 ML BAG 1.5 GM in Premix Bag 1 BAG IVPB SCH (22:00)
[2021-01-11] MEDS ORDERED: Vancomycin 1 GM in Premix Bag 1 BAG IVPB SCH (22:00)
[2021-01-11] MEDS ORDERED: HOLD VANCOMYCIN FOR LEVEL >20 FS SCH (22:00)
[2021-01-11] MEDS ORDERED: VANCOMYCIN 1.25 GM/250 ML BAG 1.25 GM in Premix Bag 1 BAG IVPB SCH (22:00)
[2021-01-11 22:35] LABS: Vancomycin, Random 24.3 ug/mL (See Comment)
[2021-01-12] MEDS: Propofol 1,000 MG/100 ML VIAL IV PRN ×7 (01:36→20:39)
[2021-01-12 04:57] LABS: ALT (SGPT) 113 U/L (8-55); AST (SGOT) 50 U/L (5-34); Albumin 2.8 g/dL (3.4-4.8); Alkaline Phosphatase 194 U/L (40-110); Anion Gap 19 mmol/L (10-20); BUN (Urea Nitrogen) 65 mg/dL (8.4-25.7); Bilirubin, Total 0.5 mg/dL (0.2-1.2); Calc. Creatinine Clearance 32 mL/min (70-130); Calcium 7.9 mg/dL (7.8-10.44); Carbon Dioxide 24 mmol/L (23-31); Chloride 95 mmol/L (98-107); Glucose 112 mg/dL (83-110); Magnesium 2.5 mg/dL (1.6-2.6); Phosphorus 6.6 mg/dL (2.3-4.7); Potassium 4.4 mmol/L (3.5-5.1); Protein, Total 5.8 g/dL (5.8-8.1); Sodium 134 mmol/L (136-145)
[2021-01-12 05:25] LABS: Band 2 % (5-11); Eosinophils 2 % (0-10); Lymphocytes 19 % (21-51); MDiff Complete? YES; Mean Corpuscular HGB CONC 33.2 g/dL (32.0-36.0); Mean Corpuscular Hemoglobin 28.7 pg (27.0-31.0); Mean Corpuscular Volume 86.2 fL (78.0-98.0); Mean Platelet Volume 7.8 fL (7.4-10.4); Monocytes 17 % (0-10); Neutrophil 57 % (42-75); Nucleated RBC 1 % (0); Platelet Count 271 thou/uL (130-400); Platelet Morphology Comment Appears Adequate; RBC Distribution Width 14.3 % (11.5-14.5); RBC Morphology Normal; Reactive Lymphocytes 3 % (0-10); Red Blood Cell (RBC) Count 3.47 mill/uL (4.70-6.10); White Blood Cell (WBC) Count 8.3 thou/uL (4.8-10.8)
[2021-01-12 07:49] LABS: Actual Bicarbonate (HCO3a) 23.8 mEq/L (22-28); Base Excess (BEa) -0.2 mEq/L (-2.0 to +3.0); CO2 Tension 36.5 mmHg (35.0-45.0); Calcium, Ionized (arterial) 1.08 mmol/L (1.12-1.30); Carboxyhemoglobin (COHb) 0.5 gm% (0.0-3.0); Hemoglobin (Hb) 10.5 g/dL (14.0-18.0); O2 Tension (PaO2), arterial 67.6 mmHg (> 70.0); Potassium - ABG Lab 4.27 mmol/L (3.70-5.30); pH, Arterial 7.43 (7.35-7.45)
[2021-01-12 07:50] LABS: ALV-art Gradient 171.975 mmHg (0-20); Puncture Site LRA
[2021-01-12] MEDS: Heparin 5,000 UNITS/ML VIAL SC SCH ×3 (10:02→20:39)
[2021-01-12] MEDS: Pantoprazole 40 MG VIAL IVP SCH (10:03)
[2021-01-12] MEDS: Cefepime 2 GM in Sodium Chloride 0.9% 100 ML IVPB SCH (10:03)
[2021-01-12 15:21] VITALS: BP 147/69
[2021-01-12] MEDS: Sodium Chloride 0.9% 1,000 ML IV SCH (20:39)
[2021-01-13] MEDS: Acetaminophen 650 MG Suppository PR PRN (02:12)
[2021-01-13] MEDS: Propofol 1,000 MG/100 ML VIAL IV PRN ×5 (02:12→20:40)
[2021-01-13 04:05] LABS: #Eosinphils 0.1 thou/uL (0.0-0.7); #Lymphocytes 1.4 thou/uL (1.20-3.40); #Monocytes 1.1 thou/uL (0.11-0.59); #Neutrophils 5.2 thou/uL (1.40-6.50); %Basophils 0.3 % (0.0-1.0); %Eosinophils 1.9 % (0.0-10.0); %Lymphocytes 17.6 % (21.0-51.0); %Monocytes 14.4 % (0.0-10.0); %Neutrophils 65.9 % (42.0-75.0); Hemoglobin 9.8 g/dL (14.0-18.0); Mean Corpuscular HGB CONC 31.3 g/dL (32.0-36.0); Mean Corpuscular Hemoglobin 27.3 pg (27.0-31.0); Mean Corpuscular Volume 87.3 fL (78.0-98.0); Mean Platelet Volume 7.6 fL (7.4-10.4); Platelet Count 332 thou/uL (130-400); RBC Distribution Width 14.4 % (11.5-14.5); Red Blood Cell (RBC) Count 3.58 mill/uL (4.70-6.10); White Blood Cell (WBC) Count 7.9 thou/uL (4.8-10.8)
[2021-01-13 04:38] LABS: ALT (SGPT) 99 U/L (8-55); AST (SGOT) 48 U/L (5-34); Albumin 2.9 g/dL (3.4-4.8); Alkaline Phosphatase 191 U/L (40-110); Anion Gap 21 mmol/L (10-20); BUN (Urea Nitrogen) 87 mg/dL (8.4-25.7); Bilirubin, Total 0.6 mg/dL (0.2-1.2); Calc. Creatinine Clearance 25 mL/min (70-130); Calcium 8.2 mg/dL (7.8-10.44); Carbon Dioxide 23 mmol/L (23-31); Chloride 95 mmol/L (98-107); Globulin 3.1 g/dL (2.4-3.5); Glucose 112 mg/dL (83-110); Magnesium 2.7 mg/dL (1.6-2.6); Phosphorus 8.3 mg/dL (2.3-4.7); Potassium 4.6 mmol/L (3.5-5.1); Sodium 134 mmol/L (136-145)
[2021-01-13] MEDS: Pantoprazole 40 MG VIAL IVP SCH (07:35)
[2021-01-13] MEDS: Heparin 5,000 UNITS/ML VIAL SC SCH ×3 (07:37→20:39)
[2021-01-13] MEDS: Cefepime 2 GM in Sodium Chloride 0.9% 100 ML IVPB SCH (07:38)
[2021-01-13] MEDS: Lorazepam 2 MG/ML VIAL SLOW IVP PRN (10:24)
[2021-01-13 12:05] LABS: Vancomycin, Random 21.1 ug/mL (See Comment)
[2021-01-13 13:51] VITALS: BMI 46.6
[2021-01-13] MEDS: Sodium Chloride 0.9% 1,000 ML IV SCH (15:56)
[2021-01-13] MEDS ORDERED: Cefepime 0.5 GM in Sodium Chloride 0.9% 100 ML IVPB SCH (17:00)
[2021-01-14] MEDS: Propofol 1,000 MG/100 ML VIAL IV PRN (04:09)
[2021-01-14 04:33] LABS: #Basophils 0.1 thou/uL (0.0-0.2); #Eosinphils 0.1 thou/uL (0.0-0.7); #Lymphocytes 1.3 thou/uL (1.20-3.40); #Monocytes 1.2 thou/uL (0.11-0.59); #Neutrophils 5.8 thou/uL (1.40-6.50); %Basophils 0.8 % (0.0-1.0); %Eosinophils 1.5 % (0.0-10.0); %Lymphocytes 15.2 % (21.0-51.0); %Monocytes 13.9 % (0.0-10.0); %Neutrophils 68.6 % (42.0-75.0); Hemoglobin 10.1 g/dL (14.0-18.0); Mean Corpuscular HGB CONC 32.9 g/dL (32.0-36.0); Mean Corpuscular Hemoglobin 28.6 pg (27.0-31.0); Mean Platelet Volume 7.7 fL (7.4-10.4); Platelet Count 367 thou/uL (130-400); RBC Distribution Width 14.5 % (11.5-14.5); Red Blood Cell (RBC) Count 3.53 mill/uL (4.70-6.10); White Blood Cell (WBC) Count 8.5 thou/uL (4.8-10.8)
[2021-01-14 05:00] LABS: ALT (SGPT) 85 U/L (8-55); AST (SGOT) 40 U/L (5-34); Albumin 2.9 g/dL (3.4-4.8); Alkaline Phosphatase 181 U/L (40-110); Anion Gap 22 mmol/L (10-20); BUN (Urea Nitrogen) 105 mg/dL (8.4-25.7); Bilirubin, Total 0.6 mg/dL (0.2-1.2); Calc. Creatinine Clearance 23 mL/min (70-130); Calcium 8.4 mg/dL (7.8-10.44); Carbon Dioxide 22 mmol/L (23-31); Chloride 94 mmol/L (98-107); Globulin 3.3 g/dL (2.4-3.5); Glucose 110 mg/dL (83-110); Magnesium 2.7 mg/dL (1.6-2.6); Potassium 4.6 mmol/L (3.5-5.1); Protein, Total 6.2 g/dL (5.8-8.1); Sodium 133 mmol/L (136-145)
[2021-01-14 05:11] LABS: Phosphorus 9.5 mg/dL (2.3-4.7)
[2021-01-14 06:22] VITALS: TEMP 98.2
== END 2021-01-14 10:22 | disposition hospice, inpatient (51) | DRG 870 ==
LOC: ERS 01:28 → ERHOLD 05:30 → CCU 01-04 18:53
PROVIDERS: ADMIT Specialist; ATTEND Specialist
PROC: 03HY32Z Insertion of Monitoring Device into Upper Artery, Percutaneous Approach (ICD-10-PCS; principal; 2021-01-03)
PROC: 05HY33Z Insertion of Infusion Device into Upper Vein, Percutaneous Approach (ICD-10-PCS; 2021-01-03)
PROC: 5A12012 Performance of Cardiac Output, Single, Manual (ICD-10-PCS; 2021-01-03)
PROC: 3E033XZ Introduction of Vasopressor into Peripheral Vein, Percutaneous Approach (ICD-10-PCS; 2021-01-03)
PROC: 5A1955Z Respiratory Ventilation, Greater than 96 Consecutive Hours (ICD-10-PCS; 2021-01-03)
PROC: 0BH18EZ Insertion of Endotracheal Airway into Trachea, Via Natural or Artificial Opening Endoscopic (ICD-10-PCS; 2021-01-03)
PROC: 5A1D70Z Performance of Urinary Filtration, Intermittent, Less than 6 Hours Per Day (ICD-10-PCS; 2021-01-03)
PROC: 4A10X4Z Monitoring of Central Nervous Electrical Activity, External Approach (ICD-10-PCS; 2021-01-06)
PROC: 06HY33Z Insertion of Infusion Device into Lower Vein, Percutaneous Approach (ICD-10-PCS; 2021-01-07)
DX: A41.9 Sepsis, unspecified organism (principal); J18.9 Pneumonia, unspecified organism; I46.9 Cardiac arrest, cause unspecified; J80 Acute respiratory distress syndrome; N18.6 End stage renal disease; N17.0 Acute kidney failure with tubular necrosis; R65.21 Severe sepsis with septic shock; E87.2 Acidosis; I48.20 Chronic atrial fibrillation, unspecified; Z68.42 Body mass index [BMI] 45.0-49.9, adult; E87.1 Hypo-osmolality and hyponatremia; G93.40 Encephalopathy, unspecified; G93.1 Anoxic brain damage, not elsewhere classified; E78.00 Pure hypercholesterolemia, unspecified; E87.5 Hyperkalemia; E78.5 Hyperlipidemia, unspecified; M10.00 Idiopathic gout, unspecified site; M17.0 Bilateral primary osteoarthritis of knee; E66.01 Morbid (severe) obesity due to excess calories; Z96.643 Presence of artificial hip joint, bilateral; Z51.5 Encounter for palliative care; N18.30 Chronic kidney disease, stage 3 unspecified; D63.1 Anemia in chronic kidney disease; Z20.822 Contact with and (suspected) exposure to COVID-19; E11.22 Type 2 diabetes mellitus with diabetic chronic kidney disease; E11.51 Type 2 diabetes mellitus with diabetic peripheral angiopathy without gangrene; G47.33 Obstructive sleep apnea (adult) (pediatric); I50.9 Heart failure, unspecified
CPT/HCPCS: 36415; 36416; 36600; 70450; 70496; 70498; 71045; 71250; 80053; 80202; 80306; 80307; 81001; 81003; 82550; 82805; 83036; 83605; 83735; 83880; 84100; 84484; 85025; 85379; 85610; 85730; 86704; 86706; 86803; 87040; 87070; 87086; 87205; 87340; 90935; 93005; 93970; 94002; 94003; 94760; 95816; 95819; 95957; C9113; G0257; J0692; J1642; J1644; J1650; J1815; J1940; J2060; J2270; J2704; J3010; J3370; J3490; J7042; J7050; J7070; Q9967; U0002; U0003; U0005

== ENCOUNTER 2021-01-14 10:58 | Inpatient (IN) | payer OTHER ==
[2021-01-14] MEDS ORDERED: Morphine 4 MG/ML VIAL SLOW IVP SCH ×2 (11:30→13:00)
[2021-01-14] MEDS ORDERED: Lorazepam 2 MG/ML VIAL SLOW IVP PRN (11:30)
[2021-01-14] MEDS ORDERED: Lorazepam 2 MG/ML VIAL SLOW IVP SCH ×2 (11:30→13:00)
[2021-01-14] MEDS ORDERED: Morphine 4 MG/ML VIAL SLOW IVP PRN (11:30)
== END 2021-01-14 14:30 | disposition expired | DRG 951 ==
LOC: CCU 10:58
PROVIDERS: ADMIT Family Medicine; ATTEND Family Medicine
DX: Z51.5 Encounter for palliative care (principal); Z66 Do not resuscitate; J96.90 Respiratory failure, unspecified, unspecified whether with hypoxia or hypercapnia; I26.99 Other pulmonary embolism without acute cor pulmonale; I48.20 Chronic atrial fibrillation, unspecified; I87.2 Venous insufficiency (chronic) (peripheral); E78.5 Hyperlipidemia, unspecified; E11.51 Type 2 diabetes mellitus with diabetic peripheral angiopathy without gangrene; N32.81 Overactive bladder; M10.00 Idiopathic gout, unspecified site; M19.90 Unspecified osteoarthritis, unspecified site; J30.9 Allergic rhinitis, unspecified; M17.0 Bilateral primary osteoarthritis of knee; M16.12 Unilateral primary osteoarthritis, left hip; Z96.641 Presence of right artificial hip joint; E66.01 Morbid (severe) obesity due to excess calories; N18.30 Chronic kidney disease, stage 3 unspecified; E11.22 Type 2 diabetes mellitus with diabetic chronic kidney disease; I12.9 Hypertensive chronic kidney disease with stage 1 through stage 4 chronic kidney disease, or unspecified chronic kidney disease; Z91.19 Patient's noncompliance with other medical treatment and regimen; Z79.899 Other long term (current) drug therapy; Z79.84 Long term (current) use of oral hypoglycemic drugs; Z79.01 Long term (current) use of anticoagulants; Z79.51 Long term (current) use of inhaled steroids
CPT/HCPCS: J2060; J2270